=== PATIENT | female | born 1990 | race Caucasian/White ===

== ENCOUNTER 2017-06-07 06:39 | Emergency (ER) | payer BC, OTHER ==
[~2017-06-07] VITALS: Ht 160 cm; Wt 97.5 kg
[~2017-06-07 06:39] MED LIST: AMOXICILLIN500 MG PO; IBUPROFEN800 MG PO; NORCO 5-325 TA1 EACH PO; PRENATAL FORMU1 EACH PO
[2017-06-07] MEDS ORDERED: NORCO 5-325 TA1 EACH PO (07:47)
[2017-06-07] MEDS ORDERED: CODITUSSIN AC473 ML PO (07:47)
== END 2017-06-07 08:01 | disposition home or self-care (01) ==
LOC: ED 06:39
DX: J06.9 Acute upper respiratory infection, unspecified (principal); Z88.1 Allergy status to other antibiotic agents; Z88.8 Allergy status to other drugs, medicaments and biological substances
CPT/HCPCS: 99283

== ENCOUNTER 2021-02-28 15:51 | Emergency (ER) | payer OTHER ==
[~2021-02-28] VITALS: Ht 160 cm; Wt 111.1 kg
[~2021-02-28 15:51] MED LIST changes: +CODITUSSIN AC473 ML PO
[2021-02-28] MEDS ORDERED: ONDANSETRON ODT8 MG PO (18:06)
== END 2021-02-28 19:18 | disposition home or self-care (01) ==
LOC: ED 15:51
DX: K29.20 Alcoholic gastritis without bleeding (principal); Z88.0 Allergy status to penicillin; Z88.1 Allergy status to other antibiotic agents; Z88.8 Allergy status to other drugs, medicaments and biological substances; Z79.899 Other long term (current) drug therapy
CPT/HCPCS: 80053; 83690; 85025; 96374; 99284-25; J2405; J7030

== ENCOUNTER 2022-05-23 14:30 | Emergency (ER) | payer BC, OTHER ==
[~2022-05-23] VITALS: Ht 160 cm; Wt 115.7 kg
[~2022-05-23 14:30] MED LIST changes: +ONDANSETRON ODT8 MG PO
[2022-05-23] MEDS ORDERED: VITAMIN D325 MC2 PO (16:13)
[2022-05-23] MEDS ORDERED: CALCIUM500 MG PO (16:13)
[2022-05-23] MEDS ORDERED: IRON159 MG PO (16:13)
== END 2022-05-23 18:50 | disposition home or self-care (01) ==
LOC: ED 14:30
DX: J02.9 Acute pharyngitis, unspecified (principal); Z20.822 Contact with and (suspected) exposure to COVID-19; Z88.0 Allergy status to penicillin; Z88.1 Allergy status to other antibiotic agents; Z88.8 Allergy status to other drugs, medicaments and biological substances
CPT/HCPCS: 87502; 87880; 99283; A9270; J1100; U0003

== ENCOUNTER 2024-11-25 11:12 | Emergency (ER) | payer OTHER ==
[~2024-11-25] VITALS: Ht 160 cm; Wt 117.0 kg
[~2024-11-25 11:12] MED LIST changes: +CALCIUM500 MG PO; +IRON159 MG PO; +VITAMIN D325 MC2 PO
[2024-11-25] MEDS ORDERED: SODIUM CHLORIDE 0.9% 1,000 ML IV ONE (11:30)
[2024-11-25 11:42] LABS: BASOPHILS 0.5 % (0-2); EOSINOPHILS 2.2 % (0-6); HEMATOCRIT 38.7 % (35.0-50.0); HEMOGLOBIN 13.2 g/dL (12.0-18.0); LYMPHOCYTES 35.6 % (24-44); MCH 28.7 (27-36); MCHC 34.2 g/dl (30-36); MCV 84.1 fl (81-99); MONOCYTES 10.7 % (0-12); PLATELET COUNT 248 K/uL (140-440); RBC 4.61 M/ul (4.3-5.7); RDW 13.7 (10.5-15.0)
[2024-11-25] MEDS ORDERED: MORPHINE SULFATE 4 MG/ML VIAL IV ONE (11:45)
[2024-11-25] MEDS ORDERED: KETOROLAC TROMETHAMINE 15 MG/ML VIAL IV ONE (11:45)
[2024-11-25] MEDS ORDERED: ondansetron HCL 4 MG/2 ML VIAL IV ONE (11:45)
[2024-11-25 11:56] LABS: ALBUMIN 3.3 g/dL (3.4-5.0); ANION GAP 11.8 (7-21); BILIRUBIN, TOTAL 0.6 mg/dL (0.2-1.0); BUN/CREATININE RATIO 9.41 (6.0-28.6); CALCIUM 8.8 mg/dL (8.5-10.1); CREATININE, SERUM 0.85 mg/dL (0.55-1.02); POTASSIUM 3.8 mmol/L (3.5-5.1); PROTEIN, TOTAL 6.6 g/dL (6.4-8.2)
[2024-11-25] MEDS ORDERED: BUPROPION HCL150 M2 (11:57)
[2024-11-25 12:31] LABS: BILIRUBIN, URINE NEGATIVE (negative); BLOOD/HGB, URINE NEGATIVE (Negative); KETONE, URINE NEGATIVE (Negative); LEUK ESTERASE, URINE NEGATIVE (negative); NITRITE, URINE NEGATIVE (negative); PH, URINE 7.5 (5-7)
[2024-11-25] MEDS ORDERED: IBU600 MG PO (13:10)
[2024-11-25] MEDS ORDERED: ONDANSETRON HCL4 MG PO (13:10)
[2024-11-25 13:19] VITALS: BP 117/78
== END 2024-11-25 13:20 | disposition home or self-care (01) ==
LOC: ED 11:12
PROVIDERS: Emergency Medicine
DX: R10.2 Pelvic and perineal pain (principal); Z79.899 Other long term (current) drug therapy; Z88.0 Allergy status to penicillin; Z88.1 Allergy status to other antibiotic agents
CPT/HCPCS: 36415; 76830; 76856; 80053; 81003; 84703; 85025; 96374; 96375; 99284-25; J1885; J2270; J2405; J7030

== ENCOUNTER 2025-04-04 18:15 | Emergency (ER) | payer OTHER ==
[~2025-04-04] VITALS: Ht 160 cm; Wt 120.3 kg
[~2025-04-04 18:15] MED LIST changes: +BUPROPION HCL150 M2; +IBU600 MG PO; +ONDANSETRON HCL4 MG PO
[2025-04-04 19:05] LABS: BASOPHILS 0.6 % (0.1-1.2); EOSINOPHILS 0.9 % (0.7-5.8); LYMPHOCYTES 30.4 % (19.3-51.7); MCH 28.1 PG (25.6-32.2); MCHC 32.5 g/dL (32.2-35.5); MCV 86.4 fL (79.4-94.8); MONOCYTES 9.9 % (4.7-12.5); NEUTROPHILS 57.7 % (34.0-71.1); RBC 4.87 M/uL (3.93-5.22)
[2025-04-04 19:26] LABS: ALT (SGPT) 27 U/L (14-59); AST (SGOT) 11 U/L (15-37); GLOMERULAR FILTRATION RATE,EST 82 mL/min (>60); PROTEIN, TOTAL 7.4 g/dL (6.4-8.2); UREA NITROGEN 14 mg/dL (7-18)
[2025-04-04] MEDS ORDERED: LACTATED RINGER'S 1,000 ML IV ONE (20:00)
--- NOTE | 2025-04-04 20:24 | EKG ---
[facility] [address] [place], [place] [address] Signed Normal sinus rhythm Normal ECG No previous ECGs available Confirmed by Mariza Wood MD ([id number]) on 04/04/2025 8:24:01 PM Electronically Signed By: MARIZA WOOD MD 04/04/252023 PATIENT NAME: RYAN MARTINEZ Electrocardiogram DATE OF : 89 PHYSICIAN: MARIZA WOOD MD REPORT #: [id number] REPORT IS CONFIDENTIAL AND NOT TO BE RELEASED WITHOUT AUTHORIZATION
[2025-04-04 21:13] VITALS: BP 124/71
== END 2025-04-04 21:15 | disposition home or self-care (01) ==
LOC: ED 18:15
PROVIDERS: Emergency Medicine
DX: R55 Syncope and collapse (principal); Z79.899 Other long term (current) drug therapy; Z88.0 Allergy status to penicillin; Z88.1 Allergy status to other antibiotic agents
CPT/HCPCS: 36415; 71045; 80053; 83735; 84484; 84703; 85025; 93005; 93010; 96374; 99285-25; J2405; J7121